=== PATIENT | male | born 1960 | race Caucasian/White ===

== ENCOUNTER 2016-10-09 23:08 | Emergency (ER) | payer OTHER ==
[2016-10-09 23:27] VITALS: TEMP 97.9; BMI 25.0
--- NOTE | 2016-10-09 23:32 | PDOC ---
History of Present Illness - General History Source: Patient Exam Limitations: No Limitations - History of Present Illness Initial Comments: 10/10/16 03:09 The patient is a 56 year old male with a significant past medical history of hypertension, brought by ambulance to the Emergency Department with high blood pressure, headache, and chest pain. The patient reports that a few hours ago he took his blood pressure to be 170/100, though he is compliant with his hypertension medication. He reports that when EMS came his bp was 160. He reports a frontal headache, but denies vision changes. He also reports a sharp, needle-like, pain in his chest. He also reports tingling in his hands and feet. He states that two days ago he saw his PCP for a throat infection and was prescribed antibiotics. He reports a cough associated with his throat infection. He reports that his PCP prescribed him Metoprolol and Lisinopril, but stopped the Lisinopril stopped due to a rash. The patient denies shortness of breath, or palpitations. Patient denies fever, or chills. Patient denies dizziness, blurry vision, and double vision. Past Medical Hx: kidney stones <Winsome Frank - Last Filed: 10/10/16 03:09> <Rosy Benton - Last Filed: 10/10/16 21:21> - General Chief Complaint: Blood Pressure Problem Stated Complaint: HYPERTENSION Time Seen by Provider: 10/09/16 23:31 Past History <Winsome Frank - Last Filed: 10/10/16 03:09> - Past Medical History HTN: Yes Suicide Attempt (Hx): No - Psycho/Social/Smoking Cessation Hx Anxiety: No Suicidal Ideation: No Smoking History: Never smoked Have you smoked in the past 12 months: No Information on smoking cessation initiated: No Hx Alcohol Use: No Drug/Substance Use Hx: No Substance Use Type: None <Rosy Benton - Last Filed: 10/10/16 21:21> - Past Medical History Allergies/Adverse Reactions: Allergies Allergy/AdvReac Type Severity Reaction Status Date / Time No Known Allergies Allergy Verified 10/09/16 23:25 Home Medications: Ambulatory Orders Metoprolol Tartrate [Lopressor -] 25 mg PO DAILY 08/15/14 Ibuprofen 800 mg PO TID #30 tablet 07/20/16 Erythromycin 0.5% Eye Ointment [Erythromycin 0.5% Eye Ointment -] 1 applic OD DAILY #1 tube 10/10/16 Valsartan [Diovan] 40 mg PO DAILY #30 tablet 10/10/16 Review of Systems - Review of Systems Able to Perform ROS?: Yes Comments:: 10/10/16 03:10 GENERAL/CONSTITUTIONAL: + high blood pressure. No fever or chills. No weakness. HEAD, EYES, EARS, NOSE AND THROAT: + throat infection. No change in vision. No ear pain or discharge. CARDIOVASCULAR: + sharp chest pain. No shortness of breath. RESPIRATORY: No cough, wheezing, or hemoptysis. GASTROINTESTINAL: No nausea, vomiting, diarrhea or constipation. GENITOURINARY: No dysuria, frequency, or change in urination. MUSCULOSKELETAL: No joint or muscle swelling or pain. No neck or back pain. SKIN: No rash NEUROLOGIC: + headache, + paresthesias. No vertigo, loss of consciousness, or change in strength. ENDOCRINE: No increased thirst. No abnormal weight change. HEMATOLOGIC/LYMPHATIC: No anemia, easy bleeding, or history of blood clots. ALLERGIC/IMMUNOLOGIC: No hives or skin allergy. <Winsome Frank - Last Filed: 10/10/16 03:09> *Physical Exam - Vital Signs Last Vital Signs Temp Pulse Resp BP Pulse Ox 97.9 F 68 20 146/104 98 10/09/16 23:25 10/10/16 02:46 10/10/16 02:46 10/10/16 02:46 10/10/16 02:46 - Physical Exam Comments: 10/10/16 03:12 GENERAL: Patient appears very anxious. Awake, alert, and fully oriented, in no acute distress HEAD: No signs of trauma EYES: PERRLA, EOMI, sclera anicteric, conjunctiva clear ENT: Auricles normal inspection, hearing grossly normal, nares patent, oropharynx clear without exudates. Moist mucosa NECK: Normal ROM, supple, no lymphadenopathy, JVD, or masses LUNGS: Breath sounds equal, clear to auscultation bilaterally. No wheezes, and no crackles HEART: Regular rate and rhythm, normal S1 and S2, no murmurs, rubs or gallops ABDOMEN: Soft, nontender, normoactive bowel sounds. No guarding, no rebound. No masses EXTREMITIES: Normal range of motion, no edema. No clubbing or cyanosis. No cords, erythema, or tenderness NEUROLOGICAL: Cranial nerves II through XII grossly intact. Normal speech, normal gait SKIN: Warm, Dry, normal turgor, no rashes or lesions noted. <Winsome Frank - Last Filed: 10/10/16 03:09> - Vital Signs Last Vital Signs Temp Pulse Resp BP Pulse Ox 97.9 F 69 18 160/107 97 10/09/16 23:25 10/09/16 23:25 10/09/16 23:25 10/09/16 23:25 10/09/16 23:25 <Rosy Benton - Last Filed: 10/10/16 21:21> ED Treatment Course - LABORATORY CBC & Chemistry Diagram: 10/09/16 23:59 10/09/16 23:59 - ADDITIONAL ORDERS Additional order review: Laboratory Results 10/09/16 10/09/16 23:59 23:59 INR 1.04 Sodium 138 Potassium 4.6 Chloride 101 Carbon Dioxide 31 Anion Gap 8 BUN 13 Creatinine 0.8 Creat Clearance w eGFR > 60 Random Glucose 117 H D Calcium 8.9 Total Bilirubin 0.3 D AST 14 L ALT 27 Alkaline Phosphatase 54 D Creatine Kinase 142 Troponin I < 0.02 Total Protein 6.5 Albumin 3.8 10/09/16 23:59 RBC 4.56 MCV 90.4 MCHC 34.0 RDW 12.7 MPV 9.9 Neutrophils % 48.6 D Lymphocytes % 35.8 D Monocytes % 13.2 H Eosinophils % 2.0 D Basophils % 0.4 <Winsome Frank - Last Filed: 10/10/16 03:09> - LABORATORY CBC & Chemistry Diagram: 10/09/16 23:59 10/09/16 23:59 <Rosy Benton - Last Filed: 10/10/16 21:21> Medical Decision Making - Medical Decision Making 10/10/16 21:20 Pt comes with HTN that is not well controlled since his PMD took him off of lisinopril. States that he also has pink eye from his kid. 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 Also erythromycin for the eye. <Rosy Benton - Last Filed: 10/10/16 21:21> *DC/Admit/Observation/Transfer - Attestations Scribe Attestion: 10/10/16 03:13 Documentation prepared by Winsome Frank, acting as medical practice manager for Rosy Benton MD. <Winsome Frank - Last Filed: 10/10/16 03:09> - Discharge Dispostion Admit: No <Rosy Benton - Last Filed: 10/10/16 21:21> Diagnosis at time of Disposition: Atypical chest pain, Hypertension - Discharge Dispostion Disposition: HOME Condition at time of disposition: Stable - Prescriptions Prescriptions: Valsartan [Diovan] 40 mg PO DAILY #30 tablet Erythromycin 0.5% Eye Ointment [Erythromycin 0.5% Eye Ointment -] 1 applic OD DAILY #1 tube - Referrals Referrals: Jose Clark [Primary Care Provider] - - Patient Instructions Printed Discharge Instructions: DI for High Blood Pressure, How to Monitor Your Blood Pressure at Home
[2016-10-10 00:15] LABS: BASOPHIL 0.4 % (0-2.0); MCH 30.7 pg (25.7-33.7); MEAN CELL VOLUME 90.4 fl (80-96); MEAN PLT VOLUME 9.9 fl (7.5-11.1); NEUTROPHILS 48.6 % (42.8-82.8); PLATELET COUNT 184 K/MM3 (134-434); RDW 12.7 % (11.9-15.9); WHITE BLOOD COUNT 4.4 K/mm3 (4.0-10.0)
[2016-10-10 00:28] LABS: INR 1.04 (0.82-1.09); PROTHROMBIN TIME (PATIENT) 11.4 SEC (9.98-11.88)
[2016-10-10 00:38] LABS: ALBUMIN 3.8 g/dl (3.4-5.0); BILIRUBIN,TOTAL 0.3 mg/dL (0.2-1.0); CALCIUM 8.9 mg/dL (8.5-10.1); CO2 31 mmol/L (21-32); CREATININE 0.8 mg/dL (0.7-1.3); GLUCOSE,RANDOM 117 mg/dL (74-106); SGOT/AST 14 U/L (15-37); SGPT/ALT 27 U/L (12-78); TOT PROT 6.5 g/dl (6.4-8.2)
[2016-10-10 00:40] LABS: ALK PHOS 54 U/L (45-117); TROPONIN I < 0.02 ng/ml (0.00-0.05)
[2016-10-10 02:13] LABS: ANION GAP 8 (8-16)
[2016-10-10] MEDS ORDERED: VALSARTAN 80 MG TABLET (UD) ONE (02:40)
[2016-10-10] MEDS ORDERED: VALSARTAN 80 MG TABLET (UD) PO ONE (02:45)
[2016-10-10 02:47] VITALS: BP 146/104; PULSE 68
--- NOTE | 2016-10-11 00:41 | EKG ---
Test Reason : Blood Pressure : / mmHG Vent. Rate : 056 BPM Atrial Rate : 056 BPM P-R Int : 194 ms QRS Dur : 096 ms QT Int : 404 ms P-R-T Axes : 032 010 002 degrees QTc Int : 389 ms SINUS BRADYCARDIA OTHERWISE NORMAL ECG WHEN COMPARED WITH ECG OF 24-SEP-2014 15:37, NO SIGNIFICANT CHANGE WAS FOUND Confirmed by JAN DACOSTA MD ([id number]) on 10/11/2016 12:41:37 AM Referred By: Confirmed By:JAN DACOSTA MD
== END 2016-10-10 02:48 | disposition home or self-care (01) ==
LOC: JER 23:08
DX: I10 Essential (primary) hypertension (principal)
CPT/HCPCS: 36415; 71020-TC; 80053; 82550; 84484; 85025; 85610; 93005; 93010; 99283-25

== ENCOUNTER → 2017-11-08 | Emergency (ER) | payer OTHER ==
[~2017-11-08] MED LIST: ACETAMINOPHEN 325 MG TABLET (FP) ONE; ACETAMINOPHEN 325 MG TABLET (FP) PO ONE
[2017-11-08 21:18] VITALS: BP 121/70; PULSE 115; TEMP 100.9; BMI 24.3
--- NOTE | 2017-11-08 23:27 | PDOC ---
History of Present Illness - General History Source: Patient Exam Limitations: No Limitations - History of Present Illness Initial Comments: 11/08/17 23:56 The patient is a 57 year old male with a significant PMH of HTN who presents to the emergency department with fever, sore throat, body aches, and generalized malaise over the past 2 days. He reports feeling exudate in the back of his throat. The patient also notes intermittent nausea and decreased appetite over this time. The patient denies any sick contacts. He reports compliance with his prescribed medications. He denies vomiting, diarrhea, or constipation. The patient denies chest pain, shortness of breath, headache, and dizziness. Denies dysuria, frequency, urgency, and hematuria. Allergies: NKA Past surgical history: Lithotripsy. Neck and spinal fusion. Social history: No reported cigarette, alcohol, or drug use. PCP: None reported. <Patel Schaeffer - Last Filed: 11/08/17 23:56> - General History Source: Patient <Antione Sharpe - Last Filed: 11/09/17 00:57> - General Chief Complaint: Respiratory Stated Complaint: FEVER Time Seen by Provider: 11/08/17 23:23 Past History <Patel Schaeffer - Last Filed: 11/08/17 23:56> - Past Medical History COPD: No HTN: Yes - Immunization History Immunization Up to Date: Yes - Suicide/Smoking/Psychosocial Hx Smoking History: Never smoked Have you smoked in the past 12 months: No Information on smoking cessation initiated: No Hx Alcohol Use: No Drug/Substance Use Hx: No Substance Use Type: None <Antione Sharpe - Last Filed: 11/09/17 00:57> - Past Medical History Allergies/Adverse Reactions: Allergies Allergy/AdvReac Type Severity Reaction Status Date / Time No Known Allergies Allergy Verified 11/08/17 21:16 Home Medications: Ambulatory Orders Metoprolol Tartrate [Lopressor -] 25 mg PO DAILY 08/15/14 Valsartan [Diovan] 40 mg PO DAILY #30 tablet 10/10/16 Penicillin V Potassium [Pen Vee K -] 500 mg PO TID #30 tablet 11/09/17 Review of Systems - Review of Systems Able to Perform ROS?: Yes Comments:: 11/08/17 23:56 CONSTITUTIONAL: (+) Fever. (+) Body aches. (+) Generalized malaise. (+) Loss of appetite. Absent:chills, diaphoresis, generalized weakness HEENT: (+) Sore throat. (+) Exudates. Absent: rhinorrhea, nasal congestion, throat pain, throat swelling, difficulty swallowing, mouth swelling, ear pain, eye pain, visual Changes CARDIOVASCULAR: Absent: chest pain, syncope, palpitations, irregular heart rate, lightheadedness , peripheral edema RESPIRATORY: Absent: cough, shortness of breath, dyspnea with exertion, orthopnea, wheezing, stridor, hemoptysis GASTROINTESTINAL: (+) Nausea. Absent: abdominal distension, vomiting, diarrhea, constipation, melena, hematochezia GENITOURINARY: Absent: dysuria, frequency, urgency, hesitancy, hematuria, flank pain, genital pain MUSCULOSKELETAL: Absent: myalgia, arthralgia, joint swelling SKIN: Absent: rash, itching, pallor HEMATOLOGIC/IMMUNOLOGIC: Absent: easy bleeding, easy bruising, lymphadenopathy, frequent infections ENDOCRINE: Absent: unexplained weight gain, unexplained weight loss, heat intolerance, cold intolerance NEUROLOGIC: Absent: headache, focal weakness or paresthesias, dizziness, unsteady gait, seizure, mental status changes, bladder or bowel incontinence PSYCHIATRIC: Absent: anxiety, depression, suicidal or homicidal ideation, hallucinations. <Patel Schaeffer - Last Filed: 11/08/17 23:56> *Physical Exam - Vital Signs Last Vital Signs Temp Pulse Resp BP Pulse Ox 100.9 F H 115 H 20 121/70 96 11/08/17 21:16 11/08/17 21:16 11/08/17 21:16 11/08/17 21:16 11/08/17 21:16 - Physical Exam Comments: 11/08/17 23:56 GENERAL: Well developed, well nourished. Awake and alert. No acute distress. HEENT: Normocephalic, atraumatic. PERRLA, EOMI. No conjunctival pallor. Sclera are non- icteric. Moist mucous membranes. Oropharynx is clear. NECK: Supple. Full ROM. No JVD. Carotid pulses 2+ and symmetric, without bruits. No thyromegaly. No lymphadenopathy. CARDIOVASCULAR: Regular rate and rhythm. No murmurs, rubs, or gallops. Distal pulses are 2+ and symmetric. PULMONARY: No evidence of respiratory distress. Lungs clear to auscultation bilaterally. No wheezing, rales or rhonchi. ABDOMINAL: Soft. Non-tender. Non-distended. No rebound or guarding. No organomegaly. Normoactive bowel sounds. MUSCULOSKELETAL Normal range of motion at all joints. No bony deformities or tenderness. No CVA tenderness. EXTREMITIES: No cyanosis. No clubbing. No edema. No calf tenderness. SKIN: Warm and dry. Normal capillary refill. No rashes. No jaundice. NEUROLOGICAL: Alert, awake, appropriate. Cranial nerves 2-12 intact. No deficits to light touch and temperature in face, upper extremities and lower extremities. No motor deficits in the in face, upper extremities and lower extremities. Normoreflexic in the upper and lower extremities. Normal speech. Toes are downgoing bilaterally. Gait is normal without ataxia. PSYCHIATRIC: Cooperative. Good eye contact. Appropriate mood and affect. <Patel Schaeffer - Last Filed: 11/08/17 23:56> - Vital Signs Last Vital Signs Temp Pulse Resp BP Pulse Ox 100.9 F H 115 H 20 121/70 96 11/08/17 21:16 11/08/17 21:16 11/08/17 21:16 11/08/17 21:16 11/08/17 21:16 <Antione Sharpe - Last Filed: 11/09/17 00:57> ED Treatment Course - Medications Given in the ED: ED Medications Discontinued Medications Generic Name Dose Route Start Last Admin Trade Name Freq PRN Reason Stop Dose Admin Acetaminophen 650 mg 11/08/17 23:27 11/08/17 23:49 Tylenol - PO 11/08/17 23:28 650 mg ONCE ONE Administration <Patel Schaeffer - Last Filed: 11/08/17 23:56> Medical Decision Making - Medical Decision Making 11/09/17 00:57 Dr. Sharpe: The scribe's documentation has been prepared under my direction and personally reviewed by me in its entirery. I confirm that the note above accurately reflects all work, treatment, procedures, and medical decision making performed by me. <Antione Shrape - Last Filed: 11/09/17 00:57> *DC/Admit/Observation/Transfer - Attestations Scribe Attestion: 11/08/17 23:56 Documentation prepared by Patel Schaeffer, acting as certified medical transcriptionist for Antione Sharpe DO. <Patel Schaeffer - Last Filed: 11/08/17 23:56> - Discharge Dispostion Admit: No <Antione Sharpe - Last Filed: 11/09/17 00:57> Diagnosis at time of Disposition: Strep pharyngitis - Discharge Dispostion Disposition: HOME Condition at time of disposition: Stable - Patient Instructions Printed Discharge Instructions: DI for Strep Throat Additional Instructions: take medication as directed. Drink plenty of fluids. Bed rest until you feel better.
== END | disposition home or self-care (01) ==
LOC: JERFT 21:10 → JER 21:10
DX: J00 Acute nasopharyngitis [common cold] (principal); B95.0 Streptococcus, group A, as the cause of diseases classified elsewhere; I10 Essential (primary) hypertension
CPT/HCPCS: 87070; 87430; 87804; 99281-25

== ENCOUNTER 2018-04-09 11:35 | Emergency (ER) | payer OTHER ==
[2018-04-09 12:00] VITALS: BP 134/91; PULSE 90; TEMP 98.5; BMI 25.7
--- NOTE | 2018-04-09 12:28 | PDOC ---
History of Present Illness - General Chief Complaint: Blood Pressure Problem Stated Complaint: Blood Pressure Problem Time Seen by Provider: 04/09/18 12:08 History Source: Patient Exam Limitations: Clinical Condition - History of Present Illness Initial Comments: 04/09/18 12:30 Patient with history of hypertension on metoprolol which was changed to hydrochlorothiazide 2 days ago by primary care present with complain of blood pressure medication now working since first tablet this morning. Patient reported the metoprolol was working but takes 2-3 hours to keep his blood pressure down and went back to his primary care to change the medication to hydrochlorothiazide. Patient reported he took first tablet this morning and fell is now working. Patient reported his blood pressure was 170 over 110s. Blood pressure in the ED is 130/90 and patient denies any symptoms now Past History - Past Medical History Allergies/Adverse Reactions: Allergies Allergy/AdvReac Type Severity Reaction Status Date / Time No Known Allergies Allergy Verified 04/09/18 11:56 Home Medications: Ambulatory Orders Metoprolol Tartrate [Lopressor -] 25 mg PO DAILY 08/15/14 Valsartan [Diovan] 40 mg PO DAILY #30 tablet 10/10/16 Penicillin V Potassium [Pen Vee K -] 500 mg PO TID #30 tablet 11/09/17 COPD: No DVT: No HTN: Yes - Immunization History Immunization Up to Date: Yes - Suicide/Smoking/Psychosocial Hx Smoking History: Never smoked Have you smoked in the past 12 months: No Hx Alcohol Use: No Drug/Substance Use Hx: No Substance Use Type: None Review of Systems - Review of Systems Able to Perform ROS?: Yes Is the patient limited Mongolian proficient: No Constitutional: No: Chills, Diaphoresis, Fever, Loss of Appetite, Malaise, Night Sweats, Weakness, Weight Stable, Unintentional Wgt. Loss, Unexplained wgt Loss, Other HEENTM: No: Eye Pain, Blurred Vision, Tearing, Recent change in vision, Double Vision, Cataracts, Ear Pain, Ocular Prothesis, Ear Discharge, Nose Pain, Nose Congestion, Tinnitus, Nose Bleeding, Hearing Loss, Throat Pain, Throat Swelling , Mouth Pain, Dental Problems, Difficulty Swallowing, Mouth Swelling, Other Respiratory: No: Cough, Orthopnea, Shortness of Breath, SOB with Exertion, SOB at Rest, Stridor, Wheezing, Productive cough, Hemoptysis, Other Cardiac (ROS): Yes: See HPI. No: Chest Pain, Edema, Irregular Heart Rate, Lightheadedness, Palpitations, Syncope, Chest Tightness, Other ABD/GI: No: Abdominal Distended, Abd. Pain w/ defecation, Blood Streaked Bowels , Constipated, Diarrhea, Difficulty Swallowing, Nausea, Poor Appetite, Poor Fluid Intake, Rectal Bleeding, Vomiting, Indigestion, Abdominal cramping, Tarry Stools, Other All Other Systems: Reviewed and Negative *Physical Exam - Vital Signs Last Vital Signs Temp Pulse Resp BP Pulse Ox 98.5 F 90 16 134/91 99 04/09/18 11:45 04/09/18 11:45 04/09/18 11:45 04/09/18 11:45 04/09/18 11:45 - Physical Exam Comments: 04/09/18 12:33 GENERAL: Well developed, well nourished. Awake and alert. No acute distress. HEENT: Normocephalic, atraumatic. PERRLA, EOMI. No conjunctival pallor. Sclera are non- icteric. Moist mucous membranes. Oropharynx is clear. NECK: Supple. Full ROM. No JVD. Carotid pulses 2+ and symmetric, without bruits. No thyromegaly. No lymphadenopathy. CARDIOVASCULAR: Regular rate and rhythm. No murmurs, rubs, or gallops. Distal pulses are 2+ and symmetric. PULMONARY: No evidence of respiratory distress. Lungs clear to auscultation bilaterally. No wheezing, rales or rhonchi. ABDOMINAL: Soft. Non-tender. Non-distended. No rebound or guarding. No organomegaly. Normoactive bowel sounds. MUSCULOSKELETAL Normal range of motion at all joints. No bony deformities or tenderness. No CVA tenderness. EXTREMITIES: No cyanosis. No clubbing. No edema. No calf tenderness. SKIN: Warm and dry. Normal capillary refill. No rashes. No jaundice. NEUROLOGICAL: Alert, awake, appropriate. Cranial nerves 2-12 intact. No deficits to light touch and temperature in face, upper extremities and lower extremities. No motor deficits in the in face, upper extremities and lower extremities. Normoreflexic in the upper and lower extremities. Normal speech. Toes are down- going bilaterally. Gait is normal without ataxia. PSYCHIATRIC: Cooperative. Good eye contact. Appropriate mood and affect. General Appearance: Yes: Nourished, Appropriately Dressed. No: Apparent Distress Medical Decision Making - Medical Decision Making 04/09/18 12:34 Patient with history of hypertension on metoprolol which was recently changed to hydrochlorothiazide presenting with complain of blood pressure medication now working after taking the first pill. Exams are normal in ED with blood pressure of 130/90. Patient educated on blood pressure medication and advised he needs to give time for blood pressure medication to work. Patient advised to keep a log of blood pressure recording at home and follow with primary care for reassessment *DC/Admit/Observation/Transfer Diagnosis at time of Disposition: Hypertension Qualifiers: Hypertension type: essential hypertension Qualified Code(s): I10 - Essential ( primary) hypertension - Discharge Dispostion Disposition: HOME Condition at time of disposition: Stable Decision to Admit order: No - Referrals Referrals: Jose Clark [Primary Care Provider] - - Patient Instructions Printed Discharge Instructions: DI for High Blood Pressure, How to Monitor Your Blood Pressure at Home Additional Instructions: Take your blood pressure medication as prescribed twice a day. Keep to acute blood pressure home and report to primary care if persistent increased blood pressures.come back to the emergency room if severe headaches, dizziness or palpitations - Post Discharge Activity
== END 2018-04-09 12:45 | disposition home or self-care (01) ==
LOC: JER 11:35 → JERFT 11:35
DX: I10 Essential (primary) hypertension (principal)
CPT/HCPCS: 99281-25

== ENCOUNTER 2018-08-07 08:20 | Emergency (ER) | payer OTHER ==
[2018-08-07 08:34] VITALS: PULSE 62; TEMP 97.8; BMI 25.0
--- NOTE | 2018-08-07 08:45 | PDOC ---
History of Present Illness - General Chief Complaint: Head/Neck problem Stated Complaint: Lightheaded Time Seen by Provider: 08/07/18 08:41 History Source: Patient - History of Present Illness Occurred: reports: other Severity: reports: moderate Pain Location: reports: neck Past History - Past Medical History Allergies/Adverse Reactions: Allergies Allergy/AdvReac Type Severity Reaction Status Date / Time erythromycin base Allergy Verified 08/07/18 08:25 Home Medications: Ambulatory Orders Metoprolol Tartrate [Lopressor -] 25 mg PO DAILY 08/15/14 Valsartan [Diovan] 40 mg PO DAILY #30 tablet 10/10/16 Penicillin V Potassium [Pen Vee K -] 500 mg PO TID #30 tablet 11/09/17 Tramadol HCl 50 mg PO Q6H #15 tablet MDD 200 mg 08/07/18 COPD: No DVT: No HTN: Yes - Immunization History Immunization Up to Date: Yes - Suicide/Smoking/Psychosocial Hx Smoking History: Never smoked Have you smoked in the past 12 months: No Information on smoking cessation initiated: No Hx Alcohol Use: No Drug/Substance Use Hx: No Substance Use Type: None Review of Systems - Review of Systems Constitutional: No: Fever Musculoskeletal: Yes: Neck Pain. No: Back Pain Neurological: No: Numbness, Tingling, Weakness *Physical Exam - Vital Signs Last Vital Signs Temp Pulse Resp BP Pulse Ox 97.8 F 62 18 125/82 99 08/07/18 08:27 08/07/18 08:27 08/07/18 08:27 08/07/18 08:27 08/07/18 08:27 - Physical Exam General Appearance: Yes: Appropriately Dressed. No: Apparent Distress HEENT: positive: Normal Voice Neck: positive: Tender (to posteriorand lateral neck diffusely, c/o pain w/ ROM) , Supple Integumentary: positive: Dry, Warm Neurologic: positive: Fully Oriented, Alert, Normal Mood/Affect, Motor Strength 5/5 Moderate Sedation - Procedure Monitoring Vital Signs: Procedure Monitoring Vital Signs Temperature 97.8 F 08/07/18 08:27 Pulse Rate 62 08/07/18 08:27 Respiratory Rate 18 08/07/18 08:27 Blood Pressure 125/82 08/07/18 08:27 O2 Sat by Pulse Oximetry (%) 99 08/07/18 08:27 Medical Decision Making - Medical Decision Making 08/07/18 08:42 58 yo M, h/o chronic neck and lower back pain related to work. S/p cervical and LS fusion ~5 years ago at [facility] per pt, here w/ neck pain. Pt states he is currently being seen by a chiropracter and that during a session last week, "compressed my neck" and that he has been having worsening pain since. Pt concerned that hardware may have dislodged. No UE weakness or sensory changes. Taking gabapentin and motrin at home w/ no relief. Pt states s/p surgery 5 yrs ago he has continued to suffer with his chronic pain and has been told by his senior loss control specialist that he may need another surgery but pt currently refusing. 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 and straightening on cervical XR -pain control in ED -dc w/ rx and instructions to f/u with his senior loss control specialist at [facility] for further management *DC/Admit/Observation/Transfer Diagnosis at time of Disposition: Neck pain - Discharge Dispostion Disposition: HOME Condition at time of disposition: Good - Prescriptions Prescriptions: Tramadol HCl 50 mg PO Q6H #15 tablet MDD 200 mg - Referrals Referrals: Jose Clark [Primary Care Provider] - - Patient Instructions Printed Discharge Instructions: DI for Neck Pain Additional Instructions: Take medication as directed for severe pain Please follow up with your senior loss control specialist in 1-2 weeks for further management - Post Discharge Activity Forms/Work/School Notes: Back to Work
[2018-08-07] MEDS ORDERED: diazePAM 5 MG TABLET PO ONE (08:47)
[2018-08-07] MEDS ORDERED: KETOROLAC TROMETHAMINE 60 MG/2 ML VIAL IM ONE (08:47)
[2018-08-07] MEDS ORDERED: KETOROLAC TROMETHAMINE 60 MG/2 ML VIAL ONE (09:06)
[2018-08-07] MEDS ORDERED: diazePAM 5 MG TABLET ONE (09:07)
[2018-08-07 09:53] VITALS: BP 109/75
== END 2018-08-07 09:30 | disposition home or self-care (01) ==
LOC: JER 08:20 → JERFT 08:20 → JER 09:30
PROC: 3E0233Z Introduction of Anti-inflammatory into Muscle, Percutaneous Approach (ICD-10-PCS; principal; 2018-08-07)
DX: M54.2 Cervicalgia (principal); M54.5 Low back pain; I10 Essential (primary) hypertension; G89.29 Other chronic pain
CPT/HCPCS: 72050-TC-FY; 99282-25

== ENCOUNTER 2018-11-11 23:27 | Emergency (ER) | payer OTHER ==
[2018-11-11 23:31] VITALS: BP 143/94; PULSE 61; TEMP 97.7; BMI 25.7
--- NOTE | 2018-11-12 01:32 | PDOC ---
History of Present Illness - General Chief Complaint: Ear Problem Stated Complaint: EAR INFECTION Time Seen by Provider: 11/12/18 00:52 History Source: Patient - History of Present Illness Timing/Duration: reports: this morning Past History - Past Medical History Allergies/Adverse Reactions: Allergies Allergy/AdvReac Type Severity Reaction Status Date / Time erythromycin base Allergy Verified 11/11/18 23:31 Home Medications: Ambulatory Orders Metoprolol Tartrate [Lopressor -] 25 mg PO DAILY 08/15/14 Valsartan [Diovan] 40 mg PO DAILY #30 tablet 10/10/16 Tramadol HCl 50 mg PO Q6H #15 tablet MDD 200 mg 08/07/18 Ciprofloxacin HCl/Dexameth [Ciprodex Otic Suspension] 4 drop BID #1 bottle COPD: No DVT: No HTN: Yes - Immunization History Immunization Up to Date: Yes - Suicide/Smoking/Psychosocial Hx Smoking History: Never smoked Have you smoked in the past 12 months: No Information on smoking cessation initiated: No Hx Alcohol Use: No Drug/Substance Use Hx: No Substance Use Type: None Review of Systems - Review of Systems Constitutional: No: Chills, Fever HEENTM: Yes: Ear Pain, Hearing Loss. No: Throat Pain *Physical Exam - Vital Signs Last Vital Signs Temp Pulse Resp BP Pulse Ox 97.7 F 61 16 143/94 100 11/11/18 23:29 11/11/18 23:29 11/11/18 23:29 11/11/18 23:29 11/11/18 23:29 - Physical Exam General Appearance: Yes: Appropriately Dressed. No: Apparent Distress HEENT: positive: Normal Voice, Other (White fibrinous exudate seen obscuring L TM of unclear etiology but does not apear to be a FB, increased erythema of canal without sig ttp, no swelling over mastoid). negative: Scleral Icterus (R) , Scleral Icterus (L) Neck: positive: Supple. negative: Lymphadenopathy (R), Lymphadenopathy (L) Respiratory/Chest: negative: Respiratory Distress Integumentary: positive: Dry, Warm Neurologic: positive: Fully Oriented, Alert, Normal Mood/Affect Moderate Sedation - Procedure Monitoring Vital Signs: Procedure Monitoring Vital Signs Temperature 97.7 F 11/11/18 23:29 Pulse Rate 61 11/11/18 23:29 Respiratory Rate 16 11/11/18 23:29 Blood Pressure 143/94 11/11/18 23:29 O2 Sat by Pulse Oximetry (%) 100 11/11/18 23:29 Medical Decision Making - Medical Decision Making 11/12/18 01:22 58 yo M, chronic neck/back pain, here w/ L ear discomfort w/ yellow otorrhea and HL this am. No sore throat, f/c. No recent URI sxs. No trauma. No recent diving. Non-smoker See exam ?OE Increased erythema to canal w/ white fibrinous material obscuring TM of unclear etiology but does not appear to be FB Will tx for possible OE as d/w ED attg No e/o mastoiditis -ENT f/u given 11/12/18 01:56 *DC/Admit/Observation/Transfer Diagnosis at time of Disposition: Ear pain, left, Otorrhea of left ear - Discharge Dispostion Disposition: HOME Condition at time of disposition: Good - Prescriptions Prescriptions: Ciprofloxacin HCl/Dexameth [Ciprodex Otic Suspension] 4 drop BID #1 bottle - Referrals Referrals: Jose Clark [Primary Care Provider] - Jose Cordova MD [Staff Physician] - - Patient Instructions Printed Discharge Instructions: Otitis Externa Additional Instructions: You were treated for possible infection of your left ear canal We have prescribed you topical antibiotics. Use drops as prescribed You will also need to follow up with Dr Cordova of ENT next week for further evaluation - Post Discharge Activity
== END 2018-11-12 01:49 | disposition home or self-care (01) ==
LOC: JER 23:27
DX: H92.12 Otorrhea, left ear (principal)
CPT/HCPCS: 99282-25

== ENCOUNTER 2021-09-27 12:46 | Emergency (ER) | payer OTHER ==
[2021-09-27 13:02] VITALS: BP 128/91; PULSE 74; TEMP 97.4; BMI 25.7
[2021-09-27] MEDS ORDERED: METOCLOPRAMIDE HCL INJECTION 10 MG/2 ML VIAL IVPB ONE (13:46)
[2021-09-27] MEDS ORDERED: MECLIZINE HCL 25 MG TABLET (FP) PO ONE ×2 (13:47→15:21)
[2021-09-27] MEDS ORDERED: LACTATED RINGERS SOLUTION 1000 ML INFUS.BAG IV ONE (13:47)
[2021-09-27] MEDS ORDERED: FAMOTIDINE 20 MG/50 ML IVPB 20 MG/50 ML MG IVPB ONE ×2 (13:48→13:56)
[2021-09-27] MEDS ORDERED: MAG HYDROX/AL HYDROX/SIMETH 30 ML UNIT-DOSE CUP PO ONE (13:48)
[2021-09-27] MEDS ORDERED: METOCLOPRAMIDE HCL INJECTION 10 MG/2 ML VIAL ONE (13:55)
[2021-09-27 14:15] LABS: BASO % 0.2 % (0-2.0); EOS % 0.3 % (0-4.5); HEMATOCRIT 40.6 % (35.4-49); LYMPH % 17.7 % (8-40); MCH 31.5 pg (25.7-33.7); MCHC 34.6 g/dl (32.0-35.9); MEAN CELL VOLUME 90.9 fl (80-96); MEAN PLT VOLUME 9.3 fl (7.5-11.1); MONO % 6.3 % (3.8-10.2); NEUT % 75.5 % (42.8-82.8); PLATELET COUNT 145 10^3/uL (134-434); RBC 4.46 M/mm3 (4.00-5.60); RDW 12.7 % (11.9-15.9); WHITE BLOOD COUNT 6.6 K/mm3 (4.0-10.0)
[2021-09-27 14:37] LABS: ALBUMIN 3.8 g/dl (3.4-5.0); BLOOD UREA NITROGEN 19.4 mg/dL (7-18); CALCIUM 8.4 mg/dL (8.5-10.1)
[2021-09-27 14:39] LABS: CREATININE 0.8 mg/dL (0.55-1.3)
[2021-09-27 14:41] LABS: BILIRUBIN,TOTAL 0.6 mg/dL (0.2-1); TOT PROT 6.5 g/dl (6.4-8.2)
[2021-09-27 14:52] LABS: ACTIVATED PTT 28.8 SECONDS (25.2-36.5); INR 1.12 (0.83-1.09); PROTHROMBIN TIME (PATIENT) 12.9 SEC (9.7-13.0)
[2021-09-27] MEDS ORDERED: MAG HYDROX/AL HYDROX/SIMETH 30 ML UNIT-DOSE CUP ONE (15:09)
[2021-09-27] MEDS ORDERED: MECLIZINE HCL 25 MG TABLET (FP) ONE ×2 (15:09→17:36)
== END 2021-09-27 19:42 | disposition home or self-care (01) ==
LOC: JER 12:46
PROC: 3E033GC Introduction of Other Therapeutic Substance into Peripheral Vein, Percutaneous Approach (ICD-10-PCS; principal; 2021-09-27)
DX: R42 Dizziness and giddiness (principal)
CPT/HCPCS: 36415; 70450-TC; 70496-TC; 70498-TC; 71045-TC-FY; 80053; 83690; 84484; 85025; 85610; 85730; 93005; 93010; 96365; 96375; 99285-25; Q9967